=== PATIENT | female | born 1965 | race Caucasian/White ===

== ENCOUNTER 2017-11-30 10:01 | Emergency (ER) | payer BC ==
[2017-11-30 10:03] VITALS: BMI 32.8
[2017-11-30 10:04] VITALS: BP 130/85; PULSE 79; RESP 16; TEMP 98.7; O2SAT 97
[2017-11-30] MEDS ORDERED: Iohexol 240 (50 ml) PO ONE (10:51)
[2017-11-30] MEDS ORDERED: Sodium Chloride 0.9% 1,000 ML IV STA (10:51)
--- NOTE | 2017-11-30 11:00 | ED PDOC ---
HPI: Abdomen Time Seen by Provider: 11/30/17 10:38 Chief Complaint (Nursing): Abdominal Pain Chief Complaint (Provider): abd pain History Per: Patient History/Exam Limitations: no limitations Onset/Duration Of Symptoms: Days (today) Additional Complaint(s): Pt. with abd pain left lower. Off and on. Had 1 episode of nonbloody diarrhea. No weakness, headaches, chest pain, back pain. No fever, new food or drinks, or travel. No nausea, vomit. Past Medical History Reviewed: Nursing Documentation, Vital Signs Vital Signs: Last Vital Signs Temp 98.7 F 11/30/17 10:03 Pulse 79 11/30/17 10:03 Resp 16 11/30/17 10:03 BP 130/85 11/30/17 10:03 Pulse Ox 97 11/30/17 12:17 - Medical History PMH: Asthma - Surgical History Surgical History: No Surg Hx - Family History Family History: States: Unknown Family Hx - Home Medications Home Medications: Ambulatory Orders Medication Instructions Recorded Clindamycin [Cleocin] 300 mg PO TID #30 cap 05/22/15 Ciprofloxacin HCl [Cipro] 500 mg PO BID 7 Days tab 11/30/17 Metronidazole [Flagyl] 500 mg PO TID 7 Days tablet 11/30/17 - Allergies Allergies/Adverse Reactions: Allergies Allergy/AdvReac Type Severity Reaction Status Date / Time acetaminophen [From Percocet] Allergy VOMITING Verified 11/30/17 10:27 oxycodone [From Percocet] Allergy VOMITING Verified 11/30/17 10:27 Review of Systems ROS Statement: Except As Marked, All Systems Reviewed And Found Negative Gastrointestinal: Positive for: Abdominal Pain, Diarrhea Physical Exam - Reviewed Nursing Documentation Reviewed: Yes Vital Signs Reviewed: Yes - Physical Exam Appears: Positive for: Non-toxic, No Acute Distress Head Exam: Positive for: ATRAUMATIC, NORMAL INSPECTION, NORMOCEPHALIC Skin: Positive for: Normal Color, Warm, DRY Eye Exam: Positive for: EOMI, Normal appearance, PERRL ENT: Positive for: Normal ENT Inspection Neck: Positive for: Normal, Painless ROM Cardiovascular/Chest: Positive for: Regular Rate, Rhythm Respiratory: Positive for: CNT, Normal Breath Sounds Gastrointestinal/Abdominal: Positive for: Bowel Sounds, Soft, Tenderness (LLQ) Back: Positive for: Normal Inspection. Negative for: L CVA Tenderness, R CVA Tenderness Extremity: Positive for: Normal ROM Neurologic/Psych: Positive for: Alert, Oriented - Laboratory Results Result Diagrams: 11/30/17 11:15 11/30/17 11:15 Interpretation Of Abn Labs: mild elevated ast/alt - ECG O2 Sat by Pulse Oximetry: 97 - CT Scan/US ct Other Rad Studies (CT/US): Read By Radiologist Other Rad Interpretation: ? thickening of colon - Progress ED Course And Treament: 1500: Stable. AAOx3. Pain free. Tolerated po. Fu with GI and pcp. Disposition - Clinical Impression Clinical Impression: Abdominal pain, Colonic thickening, Elevated liver enzymes - Patient ED Disposition Is Patient to be Admitted: No Counseled Patient/Family Regarding: Studies Performed, Diagnosis, Need For Followup, Rx Given - Disposition Referrals: [facility] [Outside] - 12/03/17 Manjeet Romero MD [Staff Provider] - 12/03/17 Disposition: Routine/Home Disposition Time: 15:05 Condition: STABLE Additional Instructions: Return if not better in 3 days. You also have mild elevated liver enzymes. See your primary care doctor without fail to follow up. Prescriptions: Ciprofloxacin HCl [Cipro] 500 mg PO BID 7 Days tab Metronidazole [Flagyl] 500 mg PO TID 7 Days tablet Instructions: Acute Abdomen (Belly Pain), Inflammatory Bowel Disease (DC) Forms: [employer] ([place]), [facility] ED School/Work Excuse
[2017-11-30 11:23] LABS: BASO # 0.1 K/uL (0.0-0.2); EOS # 0.1 K/uL (0.0-0.7); EOS % 0.8 % (0.0-4.0); HEMOGLOBIN 12.9 g/dL (12.0-16.0); LYMPH # 1.5 K/uL (1.0-4.3); LYMPH % 18.6 % (20.0-40.0); MEAN CORPUSCULAR HEMOGLOBIN 31.7 pg (27.0-31.0); MEAN CORPUSCULAR HGB CONC 33.6 g/dL (33.0-37.0); MEAN PLATELET VOLUME 9.3 fl (7.2-11.7); MONO # 0.7 K/uL (0.0-0.8); MONO % 8.4 % (0.0-10.0); NEUT # 5.9 K/uL (1.8-7.0); NEUT % 71.2 % (50.0-75.0); RBC 4.07 Mil/uL (3.80-5.20); RED CELL DISTRIBUTION WIDTH 13.7 % (11.5-14.5); WHITE BLOOD COUNT 8.2 K/uL (4.8-10.8)
[2017-11-30] MEDS ORDERED: Iohexol 240 (50 ml) ONE (11:30)
[2017-11-30 11:31] LABS: MEAN CELL VOLUME 94.2 fl (81.0-99.0)
[2017-11-30 11:40] LABS: ALB/GLOB RATIO 0.9 (1.0-2.1); ALBUMIN 4.1 g/dL (3.5-5.0); ALT/SGPT 56 U/L (9-52); AST/SGOT 65 U/L (14-36); BLOOD UREA NITROGEN 13 mg/dl (7-17); CALCIUM 9.4 mg/dL (8.4-10.2); GFR AFRICAN-AMERICAN > 60; GFR NON-AFRICAN AMERICAN > 60
[2017-11-30] MEDS ORDERED: Iohexol 300 100 ML IJ ONE (13:39)
[2017-11-30] MEDS ORDERED: Sodium Chloride 0.9% 100 ML ONE (13:39)
--- NOTE | 2017-11-30 14:21 | CT ---
PROCEDURE: CT Abdomen and Pelvis with contrast HISTORY: abd pain COMPARISON: CTA chest upper abdomen sections 11/13/2013. TECHNIQUE: Contrast dose: Omnipaque 300, 92 cc. Radiation dose: Total exam DLP = 1073.39 mGy-cm. This CT exam was performed using one or more of the following dose reduction techniques: Automated exposure control, adjustment of the mA and/or kV according to patient size, and/or use of iterative reconstruction technique. FINDINGS: LOWER THORAX: No infiltrate pleural or pericardial effusion. Cardiac size appears normal. A small nodule, 1.2 cm, is seen at the left breast in image 3 series 3. Essentially identical nodule seen at the inferior right breast laterally, image 9 series 3 compatible LIVER: Diffusely diminished attenuation throughout the liver indicates hepatic steatosis without focal mass or intrahepatic biliary tree dilatation appreciable. GALLBLADDER AND BILE DUCTS: Unremarkable. PANCREAS: Unremarkable. No gross lesion or ductal dilatation. SPLEEN: Unremarkable. ADRENALS: Unremarkable. No mass. KIDNEYS AND URETERS: Unremarkable. No hydronephrosis. No solid mass. VASCULATURE: Unremarkable. No aortic aneurysm. BOWEL: Stomach is collapsed. No bowel obstruction is identified. The the sigmoid colon is collapsed however mural thickening of the proximal to mid segment is difficult to completely exclude. No definite pericolic reaction. No colonic diverticulosis. APPENDIX: Normal appendix. PERITONEUM: Unremarkable. No free fluid. No free air. LYMPH NODES: Unremarkable. No enlarged lymph nodes. BLADDER: Unremarkable. REPRODUCTIVE: The uterus is bulbous appearing with inhomogeneous enhancement suggesting adenomyosis or fibroid uterine disease. Clinically correlate further. No definite suspicious adnexal findings bilaterally. BONES: No acute fracture. OTHER FINDINGS: None. IMPRESSION: 1. Sigmoid colon appears collapsed limiting the evaluation of the wall. Still, thickening of the proximal to mid sigmoid colon wall is in question though no pericolic reaction is related at this time. Clinically correlate further. 2. Hepatic steatosis. 3. Possible fibroid uterus or adenomyosis though a combination of both is possible. 4. Incidental note is made of bilateral lower outer quadrant breast nodules.
== END 2017-11-30 19:29 | disposition home or self-care (01) ==
LOC: H.ER 10:01
DX: R10.32 Left lower quadrant pain (principal); K63.89 Other specified diseases of intestine; R94.5 Abnormal results of liver function studies; J45.909 Unspecified asthma, uncomplicated; K76.0 Fatty (change of) liver, not elsewhere classified; Z88.5 Allergy status to narcotic agent
CPT/HCPCS: 74177; 80053; 81025; 85025; 96374; 99283; J1885; J7040; Q9966; Q9967